=== PATIENT | male | born 1965 | race Caucasian/White ===

== ENCOUNTER 2024-04-29 09:46 | Outpatient (CLI) | payer BC, SELFPAY ==
--- NOTE | ~2024-04-29 | US_ITS ---
US abdomen limited INDICATION: Right upper quadrant pain PROCEDURE: Realtime right upper abdominal ultrasound. COMPARISON: No prior studies for comparison. FINDINGS: The pancreas is normal without focal mass or pancreatic ductal dilation. Liver echotexture is somewhat heterogeneous and increased. There is nodular appearance to the liver surface, compatibl e with cirrhosis. There is normal directional flow in the portal vein. The gallbladder is normal without stones, gallbladder wall thickening or pericholecystic fluid. Comm on bile duct measures 4 mm. No sonographic Carrasco's sign. IMPRESSION: 1: Heterogeneous liver echotexture with nodular surface, compatible with cirrhosis. Clinically correl ate. Reviewed, dictated and finalized at location B. IMPRESSION: 1: Heterogeneous liver echotexture with nodular surface, compatible with cirrho sis. Clinically correlate.
== END 2024-04-29 09:47 ==
LOC: MICIMG 09:47
PROVIDERS: PCP Nurse Practitioner Family; Visit Provider Nurse Practitioner Family
DX: R10.11 Right upper quadrant pain (principal)
CPT/HCPCS: 76705

== ENCOUNTER 2024-09-15 02:30 | Day surgery (SDC) | payer BC, SELFPAY ==
[2024-09-05 11:23] VITALS: BMI 28.5
[2024-09-15 06:47] VITALS: BP 112/84; PULSE 90; RESP 18; TEMP 36; O2SAT 96; BMI 28.0
[2024-09-15] MEDS: LACTATED RINGERS 1,000 ML 150 ML IV CONT (06:50)
--- NOTE | 2024-09-15 07:35 | P.PNAN_ITS ---
Anes - Initial Pre Proc Eval Procedure: Operation Date: 09/15/24 08:00 Proposed Procedures p Colonoscopy - Alejandro Stark MD Date/Time: 09/15/24 07:35 Surgeon: Alejandro Stark MD Pre Op Diagnosis: Personal hx. colon polyps Patient Data Age: 58 Gender: M Height: 1.83 m Weight: 93.6 kg Last Vital Signs Temp 96.8 F L 09/15/24 06:47 Pulse 90 09/15/24 06:47 Resp 18 09/15/24 06:47 BP 112/84 09/15/24 06:47 Pulse Ox 96 09/15/24 06:47 O2 Del Method Room Air 09/15/24 06:47 Allergies Allergy/AdvReac Type Severity Reaction Status Date / Time No Known Allergies Allergy Verified 09/15/24 06:45 Home Medications Medication Instructions Recorded Confirmed Type aspirin 81 mg tablet,delayed 81 mg PO DAILY 12/22/21 09/15/24 History release cholecalciferol (vitamin D3) 50 50 mcg PO DAILY 12/22/21 09/15/24 History mcg (2,000 unit) capsule multivitamin with minerals-folic 1 tablet PO BOLUS 12/22/21 09/15/24 History acid 200 mcg chewable tablet (One-A-Day Men [employer]) gabapentin 300 mg capsule 600 mg PO TID #540 caps 01/07/24 09/15/24 Rx omeprazole magnesium 20 mg 20 mg PO DAILY #90 caps 01/07/24 09/15/24 Rx tablet,delayed release (Prilosec OTC) Patient hx anesthesia problems: none Family hx anesthesia problems: none Results Review: All pre-operative results and documents have been reviewed as part of the pre- operative evaluation. [facility] Past Medical History Medical History COVID-19 Difficulty breathing Elbow pain Encounter for colonoscopy following colon polyp removal Family history of colon cancer Hot flashes Painful joint Snoring Weakness Surgical History Surgical History H/O Spinal surgery History of hip surgery Family History Family History Mother Liver cancer Father Acute myocardial infarction Social History Social History Smoking packs per day: 1 Smoking cigarettes per day: 20.0 Years smoked: 44 Smoking pack-years: 44.00 Smoking status: Current every day smoker Tobacco type: cigarettes Alcohol intake: current Drinks per week: 2 Alcohol use details: BEERS Substance use: current Substance use type: marijuana Other substance usage details: SMOKES OCC. FOR PAIN Lack of Transportation: No Lack of Food: Never True Current Housing: I Have Housing Concerned About Future Housing: No Difficulty Paying Gas/Electric Bills: No Difficulty Paying for Meds: No Currently Unemployed: No Education: High School Diploma/GED Difficulty w/ Childcare or Family Care: No Living arrangements: alone Spiritual care concerns: No Anes - Eval Final PreProcedure Day of Procedure 09/15/24 07:35 Patient weight: overweight Heart: regular rate and rhythm Lungs: clear to auscultation Airway: Mallampati scale class II Neurological: alert and oriented Last oral intake: >/= 8 hours ASA classification: III Emergent: no Anesthetic plan: proceed Anesthesia type and monitoring: general GIVS and standard monitoring Results Review: All pre-operative results and documents have been reviewed as part of the pre- operative evaluation. Smoker 2 ppd for 30 years, smoked at 620 am today. Hx of ETOH use, quit 2022, pt reports suspected cirrhosis but workup not complete. Pt able to walk short distances w cane due to neuropathy. Informed Consent: The patient's anesthetic plan and its attendant risks and benefits were discu ssed with the patient/family/POA. Questions were solicited and answers provided to the satisfaction of the patient/family/POA.
--- NOTE | 2024-09-15 07:49 | PM.HPGS ---
History of Present Illness History of Present Illness Consent: Risks, benefits, and alternatives have been discussed and questions answered. Patient agrees to proceed with procedure. Chief complaint: Personal hx. colon polyps Narrative: Gerson Nunez III is a 58 year old male with colon polyp 7 years ago Review of Systems Review of Systems: All systems reviewed & are unremarkable except as noted in HPI and below PMFSH Past Medical History Medical History COVID-19 Difficulty breathing Elbow pain Encounter for colonoscopy following colon polyp removal Family history of colon cancer Hot flashes Painful joint Snoring Weakness Surgical History Surgical History H/O Spinal surgery History of hip surgery Family History Family History Mother Liver cancer Father Acute myocardial infarction Social History Social History Smoking packs per day: 1 Smoking cigarettes per day: 20.0 Years smoked: 44 Smoking pack-years: 44.00 Smoking status: Current every day smoker Tobacco type: cigarettes Alcohol intake: current Drinks per week: 2 Alcohol use details: BEERS Substance use: current Substance use type: marijuana Other substance usage details: SMOKES OCC. FOR PAIN Lack of Transportation: No Lack of Food: Never True Current Housing: I Have Housing Concerned About Future Housing: No Difficulty Paying Gas/Electric Bills: No Difficulty Paying for Meds: No Currently Unemployed: No Education: High School Diploma/GED Difficulty w/ Childcare or Family Care: No Living arrangements: alone Spiritual care concerns: No Meds Home Medications and Allergies Home Medications Medication Instructions Recorded Confirmed Type aspirin 81 mg tablet,delayed 81 mg PO DAILY 12/22/21 09/15/24 History release cholecalciferol (vitamin D3) 50 50 mcg PO DAILY 12/22/21 09/15/24 History mcg (2,000 unit) capsule multivitamin with minerals-folic 1 tablet PO BOLUS 12/22/21 09/15/24 History acid 200 mcg chewable tablet (One-A-Day Men [employer]) gabapentin 300 mg capsule 600 mg PO TID #540 caps 01/07/24 09/15/24 Rx omeprazole magnesium 20 mg 20 mg PO DAILY #90 caps 01/07/24 09/15/24 Rx tablet,delayed release (Prilosec OTC) Allergies Allergy/AdvReac Type Severity Reaction Status Date / Time No Known Allergies Allergy Verified 09/15/24 06:45 Vital Signs Vital Signs - 24 hr 09/15/24 06:47 Temperature 96.8 F L Pulse Rate 90 Respiratory Rate 18 Blood Pressure 112/84 Pulse Oximetry 96 Oxygen Delivery Room Air Exam Const: General: comfortable and no acute distress HENMT: Face/Nose/Sinus: Normal nares present Eyes: General: appearance normal, both eyes and all related structures Neck: Neck: no JVD Resp: Auscultation: clear to auscultation bilaterally Cardio: Rate: regular rate Rhythm: regular rhythm GI: Inspection: non-distended GI Palp: Yes Soft to palpation Skin: General skin exam: normal color Neuro: General: gait normal Speech: normal speech Extrem: General: normal to inspection Psych: Mental Status: mental status grossly normal Assessment and Plan Assessment and plan (1) Colon polyps: Code(s): K63.5 - Polyp of colon Status: Acute Assessment and Plan: colonoscopy
[2024-09-15 08:16] VITALS: BP 103/68; PULSE 84; RESP 26; O2SAT 94
[2024-09-15 08:26] VITALS: BP 93/64; PULSE 78; RESP 24; O2SAT 94
[2024-09-15 08:36] VITALS: BP 102/71; PULSE 73; RESP 20; O2SAT 98
== END 2024-09-15 08:52 | disposition home or self-care (01) ==
PROVIDERS: PCP Nurse Practitioner Family; Visit Provider Internal Medicine Gastroenterology
PROC: 0DJD8ZZ Inspection of Lower Intestinal Tract, Via Natural or Artificial Opening Endoscopic (ICD-10-PCS; CPT 45378; principal; 2024-09-15 08:00)
DX: Z12.11 Encounter for screening for malignant neoplasm of colon (principal); K57.30 Diverticulosis of large intestine without perforation or abscess without bleeding; F12.90 Cannabis use, unspecified, uncomplicated; F17.210 Nicotine dependence, cigarettes, uncomplicated; Z79.82 Long term (current) use of aspirin; Z98.890 Other specified postprocedural states; Z98.1 Arthrodesis status; Z86.0100 Personal history of colon polyps, unspecified; Z80.0 Family history of malignant neoplasm of digestive organs; Z82.49 Family history of ischemic heart disease and other diseases of the circulatory system
CPT/HCPCS: 45378; J2003; J2371; J2704; J7120